=== PATIENT | male | born 1955 | race Caucasian/White ===

== ENCOUNTER 2016-10-15 10:53 | Outpatient (CLI) | payer OTHER ==
[2016-10-15 11:50] LABS: Hemoglobin A1c 5.9 % (4.0-6.0)
== END 2016-10-15 10:54 | disposition home or self-care (01) ==
LOC: NAV LAB 10:53
DX: Z00.00 Encounter for general adult medical examination without abnormal findings (principal)
CPT/HCPCS: 83036

== ENCOUNTER 2017-12-27 08:00 | Outpatient (CLI) | payer OTHER ==
[2017-12-27 14:04] LABS: Hemoglobin A1c 6.9 % (4.0-6.0)
== END 2017-12-27 08:01 | disposition home or self-care (01) ==
LOC: NAV LAB 08:00
DX: Z00.00 Encounter for general adult medical examination without abnormal findings (principal)
CPT/HCPCS: 36415; 83036

== ENCOUNTER 2018-09-20 13:24 | Inpatient (IN) | payer SELFPAY ==
[2018-09-20] MEDS ORDERED: Sodium Chloride 0.9% 100 ML ONE (14:03)
[2018-09-20] MEDS ORDERED: Ibuprofen 200 MG TAB ONE (14:03)
[2018-09-20] MEDS ORDERED: cefTRIAXone\\ROCEPHIN 1 GM VIAL ONE (14:03)
[2018-09-20 14:25] LABS: ALT (SGPT) 26 U/L (8-55); AST (SGOT) 28 U/L (5-34); Albumin 4.1 g/dL (3.4-4.8); Alkaline Phosphatase 87 U/L (40-150); Anion Gap 16 mmol/L (10-20); BUN (Urea Nitrogen) 31 mg/dL (8.4-25.7); Band 12 % (5-11); Bilirubin, Total 1.2 mg/dL (0.2-1.2); Calc. Creatinine Clearance 0 mL/min (70-130); Calcium 9.5 mg/dL (7.8-10.44); Carbon Dioxide 20 mmol/L (23-31); Chloride 95 mmol/L (98-107); Estimated GFR-MDRD 66; Globulin 2.6 g/dL (2.4-3.5); Glucose 261 mg/dL (80-115); Lymphocytes 1 % (21-51); MDiff Complete? YES; Mean Corpuscular HGB CONC 32.9 g/dL (32.0-36.0); Mean Corpuscular Hemoglobin 31.1 pg (27.0-31.0); Mean Corpuscular Volume 94.5 fL (78.0-98.0); Mean Platelet Volume 8.7 fL (7.4-10.4); Monocytes 3 % (0-10); Neutrophil 84 % (42-75); Platelet Count 163 thou/uL (130-400); Potassium 4.7 mmol/L (3.5-5.1); Protein, Total 6.7 g/dL (5.8-8.1); RBC Distribution Width 11.2 % (11.5-14.5); Red Blood Cell (RBC) Count 4.52 mill/uL (4.70-6.10); Sodium 126 mmol/L (136-145); White Blood Cell (WBC) Count 19.2 thou/uL (4.8-10.8)
[2018-09-20] MEDS ORDERED: Morphine 4 MG/ML VIAL ONE (14:26)
[2018-09-20] MEDS ORDERED: Mag-Al Plus 1200 MG/1200 MG/120 MG/30 ML UDCUP ONE (14:27)
[2018-09-20] MEDS ORDERED: Ondansetron PF 4 MG/2 ML Vial ONE (14:27)
[2018-09-20] MEDS ORDERED: Sodium Chloride 0.9% 1,000 ML ONE (14:44)
[2018-09-20] MEDS ORDERED: Acetaminophen 500 MG TAB ONE (15:16)
[2018-09-20 16:06] LABS: Bilirubin Negative (Negative); Blood, Urine Trace (Negative); Clarity Clear (Clear); Glucose, Urine (Dipstick) 500 mg/dL (Negative); Leukocyte Negative (Negative); Nitrite Negative (Negative); Protein, Urine (Dipstick) 100 mg/dL (Neg-Trace); Urobilinogen 0.2 mg/dL (0.2-1.0); pH, Urine 5.5 (5.0-9.0)
[2018-09-20 16:17] LABS: RBC/HPF 0-3 HPF (0-3)
[2018-09-20] MEDS ORDERED: Sodium Chloride 0.9% 1,000 ML IV SCH (18:00)
[2018-09-20] MEDS ORDERED: cefTRIAXone\\ROCEPHIN 1 GM in Sodium Chloride 0.9% 100 ML IVPB SCH (18:00)
[2018-09-20] MEDS ORDERED: Dextrose 50% Abboject 50 ML SYRINGE IVP PRN (18:04)
[2018-09-20] MEDS ORDERED: Insulin Regular 300 UNITS/3 ML VIAL SC PRN (18:04)
[2018-09-20] MEDS ORDERED: Dextrose 5% in Water 1,000 ML IV PRN (18:04)
[2018-09-20] MEDS: Acetaminophen 325 MG TAB PO PRN (22:25)
[2018-09-21 05:21] LABS: #Lymphocytes 0.4 thou/uL (1.20-3.40); #Monocytes 0.8 thou/uL (0.11-0.59); #Neutrophils 15.4 thou/uL (1.40-6.50); %Basophils 0.2 % (0.0-1.0); %Eosinophils 0.1 % (0.0-10.0); %Lymphocytes 2.6 % (21.0-51.0); %Monocytes 4.6 % (0.0-10.0); %Neutrophils 92.4 % (42.0-75.0); Hemoglobin 11.7 g/dL (14.0-18.0); Mean Corpuscular HGB CONC 34.5 g/dL (32.0-36.0); Mean Corpuscular Hemoglobin 31.9 pg (27.0-31.0); Mean Corpuscular Volume 92.4 fL (78.0-98.0); Mean Platelet Volume 9.7 fL (7.4-10.4); Platelet Count 125 thou/uL (130-400); RBC Distribution Width 11.2 % (11.5-14.5); Red Blood Cell (RBC) Count 3.65 mill/uL (4.70-6.10); White Blood Cell (WBC) Count 16.6 thou/uL (4.8-10.8)
[2018-09-21 05:39] LABS: Anion Gap 11 mmol/L (10-20); BUN (Urea Nitrogen) 23 mg/dL (8.4-25.7); Calc. Creatinine Clearance 95 mL/min (70-130); Calcium 8.4 mg/dL (7.8-10.44); Carbon Dioxide 20 mmol/L (23-31); Chloride 100 mmol/L (98-107); Estimated GFR-MDRD Greater than 90; Glucose 142 mg/dL (80-115); Potassium 4.3 mmol/L (3.5-5.1); Sodium 127 mmol/L (136-145)
[2018-09-21] MEDS ORDERED: REPAGLINIDE PO SCH (07:30)
[2018-09-21] MEDS: Mag-Al Plus 1200 MG/1200 MG/120 MG/30 ML UDCUP PO PRN ×2 (10:52→19:35)
[2018-09-21] MEDS: Acetaminophen 325 MG TAB PO PRN (13:11)
[2018-09-21] MEDS: cefTRIAXone\\ROCEPHIN 1 GM in Sodium Chloride 0.9% 100 ML IVPB SCH (16:14)
[2018-09-21] MEDS: Sodium Chloride 0.9% 1,000 ML IV SCH (16:14)
--- NOTE | 2018-09-21 17:15 | HP ---
CHIEF COMPLAINT: Left lower extremity cellulitis. BRIEF HISTORY: This is a pleasant 63-year-old male, who is a [employer] [facility] [place], presented to the emergency room with a 1-day history of left leg pain and swelling. He denies any unusual activity or trauma. He apparently noticed some pain in the leg in the morning, but after he finished his continuing education class, he noticed redness and edema and pain with walking, so presented to the emergency room. He was diagnosed with left lower extremity cellulitis. His D-dimer was negative. His white count was 19,000 and sodium was 126. He was given a dose of Rocephin and started on IV fluids and admitted to the hospital. This morning, he stated that he feels slightly better, but the leg has not shown any improvement. He did state that it is not any worse. He did have an episode of cellulitis 10 years ago, but it was in the right leg. PAST MEDICAL HISTORY: Diabetes mellitus, type 2. ALLERGIES: NO KNOWN DRUG ALLERGIES. FAMILY HISTORY: Noncontributory to current admission. PSYCHOSOCIAL HISTORY: He does smoke about half a pack of cigarettes a day. He denies any alcohol or recreational drug abuse. 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 REVIEW OF SYSTEMS: CARDIOVASCULAR SYSTEM: Denies any chest pain, shortness of breath, palpitations, PND, orthopnea, or pedal edema. RESPIRATORY SYSTEM: Denies any chronic cough, expectoration, or pleuritic type chest pain. GASTROINTESTINAL SYSTEM: Denies any nausea, vomiting, diarrhea, constipation, hematemesis, melena, or hematochezia. GENITOURINARY SYSTEM: Denies any frequency, urgency, dysuria, or hematuria. CENTRAL NERVOUS SYSTEM: No focal numbness, weakness, or fainting spells. SHEENT: No difficulty with speech, vision, hearing, or swallowing. SKIN: See history of presenting illness. PHYSICAL EXAMINATION: GENERAL: Janusz 63-year-old male, who is resting comfortably in bed and denies any concerns. He is alert, awake, and oriented x3. VITAL SIGNS: He is afebrile. T-max was 99.5, heart rate is 91, respirations 18, oxygen saturation 93% on room air, and blood pressure 128/60. HEENT: Normocephalic and atraumatic. Pupils equally reacting to light and accommodation. NECK: No JVD, thyromegaly, cervical lymphadenopathy, or throat exudates. No carotid bruits. CARDIOVASCULAR SYSTEM: S1 and S2 plus. Rate and rhythm regular. RESPIRATORY SYSTEM: Normal vesicular breath sounds heard in all lung javier. ABDOMEN: Soft and nontender. Bowel sounds heard in all quadrants. EXTREMITIES: Without cyanosis or clubbing. 1+ edema to the left leg, with minimal erythema in the lower one-third of the leg and ankle area. No neurovascular compromise. Peripheral pulses are palpable CENTRAL NERVOUS SYSTEM: AAO x3. Cranial nerves 2 through 12 are intact. Grossly nonfocal. LABORATORY VALUES: Sodium is up to 127 from 126 and BUN and creatinine are 23 and 0.82. Blood sugars are 187, 142, and 144. Lactic acid was 1.8. D-dimer was 0.36. White count is down to 16.6 from 19.2; H and H are 11.7 and 33.8; and platelet count is down at 125, it was 163 yesterday. IMPRESSION: 1. Left lower extremity cellulitis. 2. Diabetes mellitus, type 2. 3. Hyponatremia. 4. Tobacco abuse. PLAN: 1. Continue IV Rocephin 1 g daily. 2. Start IV fluids normal saline at 100 mL an hour to help with his hyponatremia. 3. Continue Tylenol and tramadol. 4. Lovenox for DVT prophylaxis. 5. Keep left leg elevated. 6. Recheck CBC and BMP in the morning. 7. Accu-Cheks with sliding scale coverage. 8. Monitor platelet count. 9. Discussed with the patient in detail. All questions answered. Job ID: [id number]
[2018-09-21] MEDS: Enoxaparin Sodium 40 MG/0.4 ML SYRINGE SC SCH (19:35)
[2018-09-22] MEDS: Sodium Chloride 0.9% 1,000 ML IV SCH ×2 (03:18→11:30)
[2018-09-22 05:19] LABS: #Basophils 0.1 thou/uL (0.0-0.2); #Lymphocytes 0.8 thou/uL (1.20-3.40); #Monocytes 0.9 thou/uL (0.11-0.59); #Neutrophils 13.2 thou/uL (1.40-6.50); %Basophils 0.3 % (0.0-1.0); %Lymphocytes 5.2 % (21.0-51.0); %Monocytes 5.8 % (0.0-10.0); %Neutrophils 88.6 % (42.0-75.0); Hemoglobin 11.2 g/dL (14.0-18.0); Mean Corpuscular HGB CONC 33.6 g/dL (32.0-36.0); Mean Corpuscular Hemoglobin 31.4 pg (27.0-31.0); Mean Corpuscular Volume 93.5 fL (78.0-98.0); Platelet Count 106 thou/uL (130-400); Platelet Morphology Comment Appears Adequate; RBC Distribution Width 11.2 % (11.5-14.5); RBC Morphology Normal; Red Blood Cell (RBC) Count 3.58 mill/uL (4.70-6.10); White Blood Cell (WBC) Count 14.9 thou/uL (4.8-10.8)
[2018-09-22 05:20] LABS: MDiff Complete? YES; Manual Diff?? NO
[2018-09-22 05:34] LABS: Anion Gap 12 mmol/L (10-20); BUN (Urea Nitrogen) 15 mg/dL (8.4-25.7); Calc. Creatinine Clearance 103 mL/min (70-130); Carbon Dioxide 19 mmol/L (23-31); Chloride 98 mmol/L (98-107); Estimated GFR-MDRD Greater than 90; Glucose 100 mg/dL (80-115); Sodium 125 mmol/L (136-145)
[2018-09-22] MEDS: traMADol HCl 50 MG TAB PO PRN ×2 (08:15→20:59)
[2018-09-22] MEDS: Acetaminophen 325 MG TAB PO PRN ×2 (08:15→20:58)
[2018-09-22] MEDS ORDERED: Sulfameth/Trimethoprim DS 800-160mg TAB PO SCH (13:00)
--- NOTE | 2018-09-22 13:07 | PRG ---
DATE OF SERVICE: 09/22/2018 SUBJECTIVE: Mr. Bartholomew is doing well. Denies any complaints. He has been getting up and walking around. Continues to have some erythema, pain, and swelling in his left leg. No fever or chills. OBJECTIVE: VITAL SIGNS: He is afebrile, T-max 99.8, heart rate 94, respirations 20, oxygen saturation 94% on room air, and blood pressure 157/75. CARDIOVASCULAR SYSTEM: S1 and S2 plus. RESPIRATORY SYSTEM: Normal vesicular breath sounds. ABDOMEN: Soft and nontender. Bowel sounds heard in all quadrants. EXTREMITIES: Without cyanosis or clubbing. 1+ edema to the left lower extremity with erythema in the lower one-third and around the ankle. No neurovascular compromise. CENTRAL NERVOUS SYSTEM: AAO x3. Cranial nerves 2 through 12 intact. Grossly nonfocal. LABORATORY VALUES: White count is down to 14.9, hemoglobin and hematocrit of 11.2 and 33.5. Sodium 125, potassium 4.0, BUN and creatinine are 15 and 0.76. Blood sugars are 132, 134, 100, and 110. IMPRESSION: 1. Left lower extremity cellulitis. 2. Diabetes mellitus, type 2. 3. Hyponatremia. PLAN: 1. Fluid restriction of 1500 mL per 24 hours. 2. Discontinue Rocephin after today. 3. Start Bactrim DS p.o. b.i.d. 4. Activity as tolerated. 5. Recheck laboratory values in the morning. 6. 1800-calorie heart healthy ADA diet. 7. Accu-Cheks with sliding scale coverage. 8. Anticipate discharge to home tomorrow or the day after. Job ID: [id number]
[2018-09-22 13:51] VITALS: BMI 26.9
[2018-09-22] MEDS: cefTRIAXone\\ROCEPHIN 1 GM in Sodium Chloride 0.9% 100 ML IVPB SCH (16:43)
[2018-09-22] MEDS: Enoxaparin Sodium 40 MG/0.4 ML SYRINGE SC SCH (20:57)
[2018-09-22] MEDS: Sulfameth/Trimethoprim DS 800-160mg TAB PO SCH (20:58)
[2018-09-23 05:18] LABS: #Eosinphils 0.1 thou/uL (0.0-0.7); #Lymphocytes 0.9 thou/uL (1.20-3.40); #Monocytes 0.9 thou/uL (0.11-0.59); #Neutrophils 8.6 thou/uL (1.40-6.50); %Basophils 0.4 % (0.0-1.0); %Eosinophils 1.1 % (0.0-10.0); %Lymphocytes 8.4 % (21.0-51.0); %Monocytes 8.4 % (0.0-10.0); %Neutrophils 81.8 % (42.0-75.0); Hemoglobin 10.8 g/dL (14.0-18.0); Mean Corpuscular HGB CONC 33.9 g/dL (32.0-36.0); Mean Corpuscular Hemoglobin 31.5 pg (27.0-31.0); Mean Corpuscular Volume 92.9 fL (78.0-98.0); Mean Platelet Volume 9.1 fL (7.4-10.4); Platelet Count 116 thou/uL (130-400); RBC Distribution Width 11.1 % (11.5-14.5); Red Blood Cell (RBC) Count 3.41 mill/uL (4.70-6.10); White Blood Cell (WBC) Count 10.6 thou/uL (4.8-10.8)
[2018-09-23 05:19] LABS: Manual Diff?? NO; Platelet Morphology Comment Appears Adequate; RBC Morphology Normal
[2018-09-23 05:20] LABS: MDiff Complete? YES
[2018-09-23 05:32] LABS: Anion Gap 11 mmol/L (10-20); BUN (Urea Nitrogen) 12 mg/dL (8.4-25.7); Calc. Creatinine Clearance 108 mL/min (70-130); Calcium 8.1 mg/dL (7.8-10.44); Carbon Dioxide 23 mmol/L (23-31); Chloride 98 mmol/L (98-107); Estimated GFR-MDRD Greater than 90; Glucose 75 mg/dL (80-115); Potassium 4.1 mmol/L (3.5-5.1); Sodium 128 mmol/L (136-145)
[2018-09-23] MEDS: Sulfameth/Trimethoprim DS 800-160mg TAB PO SCH (09:24)
[2018-09-23] MEDS: Mag-Al Plus 1200 MG/1200 MG/120 MG/30 ML UDCUP PO PRN (10:50)
[2018-09-23 12:22] VITALS: BP 148/70; TEMP 98
--- NOTE | 2018-09-23 16:43 | DIS ---
DATE OF ADMISSION: 09/20/2018 DATE OF DISCHARGE: 09/23/2018 PRINCIPAL DIAGNOSIS: Left lower extremity cellulitis. SECONDARY DIAGNOSIS: 1. Diabetes mellitus, type 2. 2. Hyponatremia, improving. 3. Leukocytosis, resolved. COMPLICATIONS: None. ADVERSE REACTIONS: None. PROCEDURES: None. CONSULTATIONS: None. HOSPITAL COURSE: The patient was admitted through the emergency room when he presented after 1-day history of increasing left lower extremity swelling, pain, and redness. He was diagnosed with cellulitis. D-dimer was negative. Lactic acid was normal. White count was elevated at 19,000. Blood cultures were done. He was started on empiric Rocephin. He was also noted to have a sodium of 127 and was started on IV fluids. He responded gradually with a drop in the white count eventually to normal. His redness is maybe slightly better. He continues to still have some edema in left lower extremity. No neurovascular compromise. No red streaks. His fever and chills have resolved. He was switched from Rocephin to Bactrim yesterday. He has been ambulating in the hallways. His blood sugars have been stable. He was deemed stable for discharge. He is to limit his activity, keep his leg propped up as much as possible, and he is to follow up with his PCP in the next 7 to 10 days. PHYSICAL EXAMINATION: VITAL SIGNS: On the day of discharge, he is afebrile. T-max was 98, heart rate 79, respirations 18, oxygen saturation 95% on room air, and blood pressure 148/70. CARDIOVASCULAR SYSTEM: S1 and S2 plus. RESPIRATORY SYSTEM: Normal vesicular breath sounds. ABDOMEN: Soft and nontender. Bowel sounds heard in all quadrants. EXTREMITIES: Without cyanosis or clubbing. 1+ edema in left lower extremity with mild erythema in the lower one third. No neurovascular compromise. CENTRAL NERVOUS SYSTEM: AAO x3. Cranial nerves 2 through 12 intact. LABORATORY VALUES: White count is down normal to 10.6, H and H are 10.8 and 31.7. Sodium 128, improved from 123; potassium 4.1; and BUN and creatinine are 12 and 0.72. Blood sugars are 58, 139, 157 and 110. IMPRESSION: 1. Left lower extremity cellulitis. His blood cultures all have been negative. 2. Diabetes mellitus, type 2. 3. Hyponatremia, most likely dilutional as he drinks about 8 to 10 bottles of water a day. PLAN: 1. Continue Bactrim DS p.o. b.i.d. for 7 more days. 2. Activity restrictions. 3. 1800-calorie diet. 4. Limit fluid intake, and if he is drinking that much water, I advised him to add electrolyte supplements to it. 5. Follow up with PCP. He is to call us with any questions or concerns. His prescription was sent to [facility] on [address]. Job ID: [id number]
== END 2018-09-23 15:10 | disposition home or self-care (01) | DRG 603 ==
LOC: NAV ERS 13:24 → NAV ACUTE 16:28
PROVIDERS: ADMIT Internal Medicine; ATTEND Internal Medicine
DX: L03.116 Cellulitis of left lower limb (principal); E87.1 Hypo-osmolality and hyponatremia; E11.9 Type 2 diabetes mellitus without complications; F17.210 Nicotine dependence, cigarettes, uncomplicated
CPT/HCPCS: 36415; 36416; 80048; 80053; 81003; 81015; 83605; 84484; 85025; 85379; 87040; 94760; 96361; 96374; 96375; J0696; J1650; J2270; J2405; J3490; J7050

== ENCOUNTER 2019-08-07 08:40 | Outpatient (CLI) | payer OTHER ==
[2019-08-07 12:24] LABS: Hemoglobin A1c 8.4 % (4.0-6.0)
== END 2019-08-07 08:41 | disposition home or self-care (01) ==
LOC: NAV LABSP 08:40
DX: Z00.00 Encounter for general adult medical examination without abnormal findings (principal)
CPT/HCPCS: 83036

== ENCOUNTER 2020-04-12 16:39 | Inpatient (IN) | payer MEDICARE, SELFPAY ==
[2020-04-12] MEDS ORDERED: Ondansetron PF 4 MG/2 ML Vial ONE (17:09)
[2020-04-12] MEDS ORDERED: Sodium Chloride 0.9% 1,000 ML ONE ×2 (17:09→19:16)
[2020-04-12 17:15] LABS: #Basophils 0.1 thou/uL (0.0-0.2); #Lymphocytes 0.7 thou/uL (1.20-3.40); #Monocytes 0.4 thou/uL (0.11-0.59); #Neutrophils 16.3 thou/uL (1.40-6.50); %Basophils 0.4 % (0.0-1.0); %Eosinophils 0.2 % (0.0-10.0); %Lymphocytes 3.9 % (21.0-51.0); %Monocytes 2.2 % (0.0-10.0); %Neutrophils 93.3 % (42.0-75.0); Hemoglobin 14.2 g/dL (14.0-18.0); Mean Corpuscular HGB CONC 33.2 g/dL (32.0-36.0); Mean Corpuscular Hemoglobin 31.6 pg (27.0-31.0); Mean Corpuscular Volume 95.1 fL (78.0-98.0); Mean Platelet Volume 9.1 fL (7.4-10.4); Platelet Count 185 thou/uL (130-400); RBC Distribution Width 10.7 % (11.5-14.5); Red Blood Cell (RBC) Count 4.48 mill/uL (4.70-6.10); White Blood Cell (WBC) Count 17.4 thou/uL (4.8-10.8)
[2020-04-12] MEDS ORDERED: Acetaminophen 500 MG TAB ONE (17:25)
--- NOTE | 2020-04-12 17:26 | RAD ---
Portable frontal chest radiograph: 04/12/2020 COMPARISON: None HISTORY: Fever FINDINGS: Lungs are clear. Heart and mediastinal contours appear within normal limits. IMPRESSION: No acute findings.
[2020-04-12 17:33] LABS: ALT (SGPT) 33 U/L (8-55); AST (SGOT) 21 U/L (5-34); Albumin 4.2 g/dL (3.4-4.8); Alkaline Phosphatase 103 U/L (40-110); Anion Gap 16 mmol/L (10-20); BUN (Urea Nitrogen) 27 mg/dL (8.4-25.7); Calc. Creatinine Clearance 0 mL/min (70-130); Calcium 9.4 mg/dL (7.8-10.44); Carbon Dioxide 25 mmol/L (23-31); Chloride 95 mmol/L (98-107); Glucose 275 mg/dL (80-115); Lipase 35 U/L (8-78); Magnesium 1.5 mg/dL (1.6-2.6); Potassium 4.5 mmol/L (3.5-5.1); Protein, Total 7.2 g/dL (5.8-8.1); Sodium 131 mmol/L (136-145)
[2020-04-12] MEDS ORDERED: Cefepime 2 GM VIAL ONE (17:34)
[2020-04-12] MEDS ORDERED: Sodium Chloride 0.9% 100 ML ONE (17:35)
[2020-04-12 17:57] LABS: Bilirubin Negative (Negative); Blood, Urine Trace (Negative); Clarity Clear (Clear); Glucose, Urine (Dipstick) 500 mg/dL (Negative); Ketone, Urine Negative (Negative); Leukocyte Negative (Negative); Nitrite Negative (Negative); Protein, Urine (Dipstick) 100 mg/dL (Neg-Trace); Urobilinogen 0.2 mg/dL (Less than 2)
[2020-04-12 18:14] LABS: Bacteria/HPF None Seen HPF (None Seen); RBC/HPF 0-3 HPF (0-3); Squamous Epithelial 0-3 HPF (0-3); WBC/HPF 0-3 HPF (0-3)
[2020-04-12] MEDS ORDERED: Vancomycin HCl 750 MG VIAL ONE (18:16)
[2020-04-12] MEDS ORDERED: Sodium Chloride 0.9% 500 ML ONE (18:17)
[2020-04-12 20:55] LABS: SARS-CoV-2 NAA Rapid Test Not Detected (NotDetected)
[2020-04-12 21:46] VITALS: BMI 29.3
[2020-04-12] MEDS ORDERED: Dextrose 5% in Water 1,000 ML IV PRN (22:15)
[2020-04-12] MEDS ORDERED: Acetaminophen 325 MG TAB PO PRN (22:15)
[2020-04-12] MEDS ORDERED: HumaLOG 300 UNITS/3 ML VIAL SC PRN (22:15)
[2020-04-12] MEDS ORDERED: Ondansetron PF 4 MG/2 ML Vial IVP PRN ×2 (22:15→22:22)
[2020-04-12] MEDS ORDERED: Sodium Chloride 0.9% 1,000 ML IV SCH (22:15)
[2020-04-12] MEDS ORDERED: Dextrose 50% Abboject 50 ML SYRINGE SLOW IVP PRN (22:15)
[2020-04-12] MEDS ORDERED: Ondansetron ODT 4 MG TAB SL PRN (22:15)
[2020-04-12] MEDS: Acetaminophen 325 MG TAB PO PRN (22:37)
[2020-04-13] MEDS: Acetaminophen 325 MG TAB PO PRN (03:49)
[2020-04-13 05:21] LABS: #Lymphocytes 0.5 thou/uL (1.20-3.40); #Monocytes 0.4 thou/uL (0.11-0.59); %Basophils 0.2 % (0.0-1.0); %Lymphocytes 3.3 % (21.0-51.0); %Monocytes 2.6 % (0.0-10.0); Hemoglobin 11.4 g/dL (14.0-18.0); Mean Corpuscular HGB CONC 33.8 g/dL (32.0-36.0); Mean Corpuscular Hemoglobin 32.2 pg (27.0-31.0); Mean Corpuscular Volume 95.3 fL (78.0-98.0); Mean Platelet Volume 9.7 fL (7.4-10.4); Platelet Count 122 thou/uL (130-400); RBC Distribution Width 11.1 % (11.5-14.5); Red Blood Cell (RBC) Count 3.54 mill/uL (4.70-6.10); White Blood Cell (WBC) Count 14.9 thou/uL (4.8-10.8)
[2020-04-13] MEDS ORDERED: Cefepime 2 GM in Sodium Chloride 0.9% 100 ML IVPB SCH ×2 (05:30→06:00)
[2020-04-13 05:32] LABS: Anion Gap 11 mmol/L (10-20); BUN (Urea Nitrogen) 20 mg/dL (8.4-25.7); Calc. Creatinine Clearance 80 mL/min (70-130); Carbon Dioxide 21 mmol/L (23-31); Chloride 103 mmol/L (98-107); Glucose 235 mg/dL (80-115); Potassium 4.2 mmol/L (3.5-5.1); Sodium 131 mmol/L (136-145)
[2020-04-13] MEDS: REPAGLINIDE 1 MG TABLET PO SCH ×3 (08:59→16:11)
[2020-04-13] MEDS: cefTRIAXone\\ROCEPHIN 1 GM in Sodium Chloride 0.9% 100 ML IVPB SCH (12:51)
[2020-04-13] MEDS ORDERED: REPAGLINIDE 1 MG PO SCH (15:00)
--- NOTE | 2020-04-13 17:25 | HP ---
PRINCIPAL DIAGNOSIS: Left leg cellulitis. BRIEF HISTORY: This is a pleasant 65-year-old male with history of diabetes mellitus, who admitted last year for the same complaints. Apparently, he was at his place of work when he noticed significantly increasing pain to his left leg, where he was unable to bear any weight or walk, and so I have asked his son to bring him to the emergency room. He denies any fever or chills. He denies any open areas or any bites. He was noted with the left leg cellulitis. He was tachycardic most likely due to pain. He received 2 L of IV fluids and was started on sepsis protocol with cefepime and vancomycin. Blood cultures were sent off. He was admitted to the hospital for IV antibiotics. He states that he feels much better today. No fever since admission. His white count is improving. Plan is to switch him to IV Rocephin, which worked for him last time. If his white count comes back to normal tomorrow and his cellulitis is better, then we will switch him to Bactrim and anticipate discharge on Saturday. I did advise him that Dr. Berman is covering and he will be seeing him through the rest of his admission days. The patient has been doing well and other than taking the repaglinide 1 mg t.i.d., he is not on any medications. PAST MEDICAL HISTORY: Diabetes mellitus type 2. SURGICAL HISTORY: Noncontributory to current admission. PSYCHOSOCIAL HISTORY: He smokes about half a pack of cigarettes a day. 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 He denies any alcohol or recreational drug abuse. FAMILY HISTORY: Noncontributory to current admission. ALLERGIES: NO KNOWN DRUG ALLERGIES. MEDICATIONS: He takes repaglinide 1 mg t.i.d. REVIEW OF SYSTEMS: GENERAL: Denies any fever, chills, or weight change. CARDIOVASCULAR: Denies any chest pain, shortness of breath, palpitations, PND, orthopnea, or pedal edema. RESPIRATORY: Denies any chronic cough, expectoration, or pleuritic-type chest pain. GASTROINTESTINAL: Denies any nausea, vomiting, diarrhea, constipation, hematemesis, melena, or hematochezia. GENITOURINARY: Denies any frequency, urgency, dysuria, or hematuria. EXTREMITIES: Does complain of left leg pain. CENTRAL NERVOUS SYSTEM: Denies any focal numbness, weakness, or fainting spells. SKIN: Does notice erythema in the left leg, but otherwise no rash. HEENT: Denies any changes with speech, vision, hearing, or swallowing. PHYSICAL EXAMINATION: GENERAL: Pleasant 65-year-old male, who is resting comfortably in bed and denies any concerns. He is alert, awake, and oriented x3. VITAL SIGNS: He is afebrile. Heart rate is 86, respirations 18, oxygen saturation 93% on room air, blood pressure 147/66. CARDIOVASCULAR: S1 and S2 plus. Rate and rhythm regular. RESPIRATORY: Normal vesicular breath sounds heard in all lung javier. ABDOMEN: Soft, nontender. Bowel sounds heard in all quadrants. EXTREMITIES: Without cyanosis or clubbing. Left leg shows erythema consistent with cellulitis. No red streaks. No neurovascular compromise. CENTRAL NERVOUS SYSTEM: AAO x3. Cranial nerves 2 through 12 intact. Generalized weakness. Otherwise, nonfocal. LABORATORY VALUES: On admission, his white count was 17.4, now it is 14.9; hemoglobin and hematocrit was 14.2 and 42.7 on admission, now it is 11.4 and 33.7, likely secondary to hemodilution. Sodium 131, potassium 4.2, BUN and creatinine is 20 and 1.04. Sodium yesterday was also 131, but BUN and creatinine at 27 and 1.36. Blood sugars are . Lactic acid was normal. Blood cultures are pending. IMPRESSION: 1. Left leg cellulitis. 2. Diabetes mellitus type 2. 3. Hyponatremia, chronic. 4. Resolved dehydration. PLAN: 1. Switch him to IV Rocephin. 2. Continue 1800 calorie heart healthy ADA diet. 3. Accu-Cheks with sliding scale coverage. 4. Resume home medication. 5. Await blood cultures. 6. Activity as tolerated. 7. Recheck CBC, BMP in the morning. 8. Anticipate switching him to oral Bactrim once his white count returns to normal and/or his cellulitis shows improvement. 9. Dr. Berman on-call from now. 10. No family at bedside. 11. Discussed with nursing. 12. The patient is complaining of some abdominal discomfort probably from the antibiotics. We will start him on pantoprazole 40 daily. Job ID: [id number]
[2020-04-13] MEDS ORDERED: Vancomycin HCl 750 MG in Sodium Chloride 0.9% 250 ML 250 ML IVPB SCH ×2 (20:00→21:00)
[2020-04-14 05:56] LABS: Anion Gap 11 mmol/L (10-20); BUN (Urea Nitrogen) 12 mg/dL (8.4-25.7); Calc. Creatinine Clearance 80 mL/min (70-130); Calcium 8.3 mg/dL (7.8-10.44); Carbon Dioxide 25 mmol/L (23-31); Chloride 99 mmol/L (98-107); Glucose 188 mg/dL (80-115); Potassium 4.2 mmol/L (3.5-5.1); Sodium 131 mmol/L (136-145)
[2020-04-14 06:09] LABS: #Eosinphils 0.1 thou/uL (0.0-0.7); #Lymphocytes 1.1 thou/uL (1.20-3.40); #Monocytes 0.8 thou/uL (0.11-0.59); #Neutrophils 8.6 thou/uL (1.40-6.50); %Basophils 0.3 % (0.0-1.0); %Lymphocytes 10.4 % (21.0-51.0); %Monocytes 7.6 % (0.0-10.0); %Neutrophils 80.7 % (42.0-75.0); Anisocytosis SLIGHT = 6-15 cells (100X) (0-5/hpf); Hemoglobin 10.9 g/dL (14.0-18.0); MDiff Complete? YES; Mean Corpuscular HGB CONC 33.9 g/dL (32.0-36.0); Mean Corpuscular Hemoglobin 32.1 pg (27.0-31.0); Mean Corpuscular Volume 94.7 fL (78.0-98.0); Mean Platelet Volume 9.2 fL (7.4-10.4); Platelet Count 118 thou/uL (130-400); Platelet Morphology Comment Appears Decreased; RBC Distribution Width 10.9 % (11.5-14.5); White Blood Cell (WBC) Count 10.7 thou/uL (4.8-10.8)
[2020-04-14] MEDS: REPAGLINIDE 1 MG TABLET PO SCH ×3 (09:21→17:23)
[2020-04-14] MEDS: cefTRIAXone\\ROCEPHIN 1 GM in Sodium Chloride 0.9% 100 ML IVPB SCH (12:26)
[2020-04-14 19:31] LABS: Vancomycin, Trough Less than 1.1 ug/mL
--- NOTE | 2020-04-14 20:01 | PRG ---
DATE OF SERVICE: 04/14/2020 SUBJECTIVE: The patient is walking to the bathroom, feels well with only minimal tenderness in his left leg. He has been told by Dr. Castillo that he could be discharged home with his leg was doing better. He does state that his leg feels much better. Specially when he is elevated, the swelling is going down and erythema has gone down. OBJECTIVE: VITAL SIGNS: Have been stable, temperature 97.7, pulse 80, respirations 18, O2 sats 97% on room air, and blood pressure 145/70. EXTREMITIES: Left leg shows decreased erythema and swelling. Minimal warmth. LUNGS: Clear. CARDIAC: Regular rhythm. ABDOMEN: Soft and nontender LABORATORY DATA: White count is normalized at 10,700, hematocrit 32, and hemoglobin 10. Accu-Cheks have been elevated at 188 to 234. Sodium 131, potassium 4.2, chloride 99, bicarb 25, BUN 12, and creatinine 1.04. ASSESSMENT: 1. Resolving cellulitis of the left leg. 2. Type 2 diabetes with decreased control secondary to recent infection. 3. Nicotine abuse, continue smoking of half pack cigarettes a day. PLAN: Discontinue Rocephin. Start on Bactrim DS twice daily. If the patient continues to improve tomorrow, discharge home to follow with Dr. Castillo. Continue on his home medications of repaglinide 1 mg 3 times daily once arrived home. Job ID: [id number]
[2020-04-14] MEDS: Sulfameth/Trimethoprim DS 800-160mg TAB PO SCH (22:08)
[2020-04-15] MEDS: REPAGLINIDE 1 MG TABLET PO SCH ×3 (08:29→17:34)
[2020-04-15] MEDS: Sulfameth/Trimethoprim DS 800-160mg TAB PO SCH ×2 (09:18→20:25)
--- NOTE | 2020-04-16 07:30 | PRG ---
DATE OF SERVICE: 04/15/2020 SUBJECTIVE: The patient feels well, but has developed transient pruritus last night and given Bactrim with no rash, which resolved within several hours. However, this afternoon, his blood pressure is appearing to increase with again medication. He has no previous history of hypertension or shortness of breath or chest pain. OBJECTIVE: VITAL SIGNS: Shows his blood pressure 168/78, pulse 73, temperature is 96, O2 saturation is 98% on room air. LUNGS: Clear. CARDIAC EXAMINATION: Shows regular rhythm. EXTREMITIES: Left leg shows markedly decreased swelling, erythema, and warmth. ASSESSMENT: 1. Resolving cellulitis. 2. Possible reaction to sulfa with new onset of hypertension and pruritus. PLAN: Continue Bactrim tonight and monitor for recurrent symptoms of pruritus or hypertension and may need to change to another antibiotic tomorrow and discharged home on another oral antibiotic. Job ID: [id number]
[2020-04-16] MEDS: REPAGLINIDE 1 MG TABLET PO SCH ×3 (08:04→17:21)
[2020-04-16 08:25] LABS: #Basophils 0.1 thou/uL (0.0-0.2); #Eosinphils 0.2 thou/uL (0.0-0.7); #Lymphocytes 0.9 thou/uL (1.20-3.40); #Monocytes 0.6 thou/uL (0.11-0.59); #Neutrophils 4.6 thou/uL (1.40-6.50); %Basophils 1.3 % (0.0-1.0); %Eosinophils 3.6 % (0.0-10.0); %Lymphocytes 14.4 % (21.0-51.0); %Monocytes 8.7 % (0.0-10.0); Hemoglobin 11.9 g/dL (14.0-18.0); Mean Corpuscular HGB CONC 33.5 g/dL (32.0-36.0); Mean Corpuscular Hemoglobin 31.6 pg (27.0-31.0); Mean Corpuscular Volume 94.4 fL (78.0-98.0); Mean Platelet Volume 8.9 fL (7.4-10.4); Platelet Count 177 thou/uL (130-400); RBC Distribution Width 10.7 % (11.5-14.5); Red Blood Cell (RBC) Count 3.78 mill/uL (4.70-6.10); White Blood Cell (WBC) Count 6.4 thou/uL (4.8-10.8)
[2020-04-16 08:43] LABS: ALT (SGPT) 23 U/L (8-55); AST (SGOT) 15 U/L (5-34); Albumin 3.2 g/dL (3.4-4.8); Alkaline Phosphatase 68 U/L (40-110); Anion Gap 12 mmol/L (10-20); BUN (Urea Nitrogen) 12 mg/dL (8.4-25.7); Bilirubin, Total 0.8 mg/dL (0.2-1.2); Calc. Creatinine Clearance 81 mL/min (70-130); Calcium 8.6 mg/dL (7.8-10.44); Carbon Dioxide 25 mmol/L (23-31); Chloride 100 mmol/L (98-107); Globulin 2.8 g/dL (2.4-3.5); Glucose 194 mg/dL (80-115); Potassium 4.1 mmol/L (3.5-5.1); Sodium 133 mmol/L (136-145)
[2020-04-16] MEDS: Cephalexin 500 MG CAP PO SCH ×2 (12:06→17:21)
[2020-04-16 16:25] VITALS: BP 173/86; TEMP 97.9
--- NOTE | 2020-04-18 12:01 | DIS ---
DATE OF ADMISSION: 04/12/2020 DATE OF DISCHARGE: 04/16/[address] Brendon Hansen. FINAL DIAGNOSES: 1. Cellulitis, resolved. 2. Elevated blood pressure with no diagnosis of hypertension. 3. Type 2 diabetes. HOSPITAL COURSE: The patient is a very pleasant 65-year-old white male, patient of Dr. Hansen, who was admitted to the hospital on April 13 with acute onset of swelling, tenderness, and erythema over left calf, felt to have cellulitis. He was treated with IV fluids, sepsis protocol with cefepime and vancomycin. Blood cultures were sent off and returned negative. He improved greatly by the next day. He was switched IV Rocephin, continued to feel well. White count was 17,000 on admission, improved to 14,000 the next day and was 10,000 the next day and on discharge it was 6400. He was switched to oral Bactrim on the 2nd hospital day when his white count was 10,000. His leg at that time was minimally swollen and red, but not tender or warm. His leg continued to improve, but he did develop elevated blood pressure after this up to 200 at night. This occurred several times and then therefore his Bactrim was switched to Keflex. He had no symptoms with it. He has elevated blood pressures, but they continued to happen even on the Keflex and on discharge, his blood pressure was 152/70, temperature was 97. He was afebrile. He was therefore discharged home on Keflex with instructions to check his blood pressure at home and to follow up with Dr. Hansen in a week. On discharge, his lungs were clear. Cardiac examination showed regular rhythm. Abdomen was soft and nontender. White count as mentioned above was 6400, hematocrit 35, hemoglobin 11. Sodium was 133, potassium 4.1, chloride 100, bicarb 25, BUN 12, creatinine 1. Accu-Cheks ranging from 171 to 243, but the patient was only on sliding scale as his repaglinide that takes at home was not on the formulary. He will therefore restart the repaglinide at home and will report back to Dr. Hansen with Accu-Cheks also. Job ID: [id number]
== END 2020-04-16 17:45 | disposition home or self-care (01) | DRG 872 ==
LOC: NAV ERS 16:39 → NAV ACUTE 21:18
PROVIDERS: ADMIT Internal Medicine; ATTEND Internal Medicine
DX: A41.9 Sepsis, unspecified organism (principal); L03.116 Cellulitis of left lower limb; E87.1 Hypo-osmolality and hyponatremia; F17.210 Nicotine dependence, cigarettes, uncomplicated; N18.9 Chronic kidney disease, unspecified; E11.22 Type 2 diabetes mellitus with diabetic chronic kidney disease; E11.65 Type 2 diabetes mellitus with hyperglycemia; Z79.899 Other long term (current) drug therapy; E86.0 Dehydration; L29.9 Pruritus, unspecified; I12.9 Hypertensive chronic kidney disease with stage 1 through stage 4 chronic kidney disease, or unspecified chronic kidney disease; Z20.822 Contact with and (suspected) exposure to COVID-19
CPT/HCPCS: 0240U; 36416; 71045; 80048; 80053; 80202; 81003; 81015; 82010; 83605; 83690; 83735; 84484; 85025; 85379; 87040; 87086; 96365; 96366; 96367; 96375; 36415-59; J0692; J0696; J2405; J3370; J3490; J7030; J7050

== ENCOUNTER 2020-05-17 10:27 | Outpatient (CLI) | payer MEDICARE ==
[2020-05-17 11:29] LABS: Anion Gap 17 mmol/L (10-20); BUN (Urea Nitrogen) 25 mg/dL (8.4-25.7); Calc. Creatinine Clearance 0 mL/min (70-130); Carbon Dioxide 24 mmol/L (23-31); Chloride 98 mmol/L (98-107); Glucose 372 mg/dL (80-115); Potassium 4.6 mmol/L (3.5-5.1); Sodium 134 mmol/L (136-145)
[2020-05-17 11:33] LABS: Hemoglobin 14.3 g/dL (14.0-18.0); Mean Corpuscular HGB CONC 34.7 g/dL (32.0-36.0); Mean Corpuscular Hemoglobin 32.5 pg (27.0-31.0); Mean Corpuscular Volume 93.8 fL (78.0-98.0); Mean Platelet Volume 9.6 fL (7.4-10.4); Platelet Count 161 thou/uL (130-400); RBC Distribution Width 10.7 % (11.5-14.5); White Blood Cell (WBC) Count 11.9 thou/uL (4.8-10.8)
[2020-05-17 11:34] LABS: #Neutrophils 10.2 thou/uL (1.40-6.50); %Eosinophils 1.1 % (0.0-10.0); %Lymphocytes 8.5 % (21.0-51.0); %Monocytes 4.5 % (0.0-10.0); %Neutrophils 85.3 % (42.0-75.0)
[2020-05-17 11:35] LABS: #Basophils 0.1 thou/uL (0.0-0.2); #Eosinphils 0.5 thou/uL (0.0-0.7)
== END 2020-05-17 10:28 | disposition home or self-care (01) ==
LOC: NAV LABSP 10:27
PROVIDERS: ATTEND Family Medicine
DX: E11.9 Type 2 diabetes mellitus without complications (principal)
CPT/HCPCS: 36415; 80048; 85025

== ENCOUNTER 2022-10-18 06:35 | Emergency (ER) | payer MEDICARE ==
[2022-10-18] MEDS ORDERED: Famotidine 20 MG TAB ONE (07:08)
[2022-10-18] MEDS ORDERED: diphenhydrAMINE 25 MG CAP ONE (07:08)
== END 2022-10-18 07:20 | disposition home or self-care (01) ==
LOC: NAV ERS 06:35
DX: L23.9 Allergic contact dermatitis, unspecified cause (principal); E11.9 Type 2 diabetes mellitus without complications; Z87.891 Personal history of nicotine dependence
CPT/HCPCS: 99283

== ENCOUNTER 2024-11-28 14:22 | Emergency (ER) | payer OTHER ==
[2024-11-28] MEDS ORDERED: Ondansetron PF 4 MG/2 ML Vial ONE ×2 (15:04→18:01)
[2024-11-28 15:10] LABS: #Basophils 0.1 thou/uL (0.0-0.2); #Eosinophils 0.1 thou/uL (0.0-0.7); #Lymphocytes 1.3 thou/uL (1.20-3.40); #Monocytes 0.7 thou/uL (0.11-0.59); #Neutrophils 8.0 thou/uL (1.40-6.50); %Basophils 0.8 % (0.0-1.0); %Eosinophils 0.7 % (0.0-10.0); %Lymphocytes 12.6 % (21.0-51.0); %Monocytes 7.1 % (0.0-10.0); %Neutrophils 78.8 % (42.0-75.0); Hematocrit 41.2 % (42.0-52.0); Hemoglobin 14.5 g/dL (14.0-18.0); Mean Corpuscular Hemoglobin 31.5 pg (27.0-31.0); Mean Corpuscular Volume 89.4 fl (78.0-98.0); Platelet Count 236 10x3/uL (130-400); Red Blood Cell (RBC) Count 4.61 mill/uL (4.70-6.10); White Blood Cell (WBC) Count 10.2 10x3/uL (4.8-10.8)
[2024-11-28 15:23] LABS: ALT (SGPT) 20 U/L (Less than 45); AST (SGOT) 23 U/L (11-34); Albumin 3.8 g/dL (3.1-4.5); Alkaline Phosphatase 69 U/L (40-110); Anion Gap 16 mmol/L (10-20); BUN (Urea Nitrogen) 16 mg/dL (8.4-25.7); Bilirubin, Total 1.3 mg/dL (0.3-1.2); Calc. Creatinine Clearance 0 mL/min (70-130); Calcium 9.8 mg/dL (7.8-10.44); Carbon Dioxide 24 mmol/L (23-31); Chloride 97 mmol/L (98-107); Globulin 3.1 g/dL (2.4-3.5); Glucose 218 mg/dL (80-115); Potassium 4.4 mmol/L (3.5-5.1); Sodium 133 mmol/L (136-145)
[2024-11-28 15:26] LABS: Troponin I Less than 0.010 ng/mL (< 0.028)
[2024-11-28] MEDS ORDERED: Pantoprazole 40 MG VIAL ONE (15:35)
[2024-11-28 18:08] LABS: Troponin I Less than 0.010 ng/mL (< 0.028)
== END 2024-11-28 18:50 | disposition home or self-care (01) ==
LOC: NAV ERS 14:22
DX: S22.41XA Multiple fractures of ribs, right side, initial encounter for closed fracture (principal); R11.2 Nausea with vomiting, unspecified; R29.700 NIHSS score 0; E11.22 Type 2 diabetes mellitus with diabetic chronic kidney disease; N18.9 Chronic kidney disease, unspecified; Z87.891 Personal history of nicotine dependence; Z79.84 Long term (current) use of oral hypoglycemic drugs; Z79.899 Other long term (current) drug therapy
CPT/HCPCS: 80053; 84484; 85025; 85379; 96374; 96375; 96376; J2272; J2405; J2470